=== PATIENT | male | born 1965 | race Caucasian/White ===

== ENCOUNTER 2017-01-30 10:10 | Emergency (ER) | payer BC ==
[~2017-01-30] VITALS: Ht 180.3 cm; Wt 88.5 kg
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
[2017-01-30] MEDS ORDERED: BACI/NEOM/POLY B OINT PKT 1 UDPKT PACKET TP ONE (10:30)
[2017-01-30] MEDS ORDERED: TDAP [DIPH/PERTUSSIS/TET] 0.5 ML VIAL IM ONE ×2 (10:30→10:34)
[2017-01-30] MEDS ORDERED: LIDOCAINE HCL/PF 1% 30 ML VIAL TP ONE (10:30)
[2017-01-30] MEDS ORDERED: LIDOCAINE /MPF 1% VIAL 5 ML VIAL ONE (10:33)
--- NOTE | 2017-01-30 11:09 | NUR ---
AT BEDSIDE FOR SUTURES.
[2017-01-30 11:29] VITALS: BP 138/88
--- NOTE | 2017-01-30 11:30 | NUR ---
Patient discharged to home in stable condition. Written and verbal after care instructions given. Patient verbalizes understanding of instruction.
== END 2017-01-30 11:29 | disposition home or self-care (01) ==
LOC: ER 10:11
DX: S01.511A Laceration without foreign body of lip, initial encounter (principal); W22.8XXA Striking against or struck by other objects, initial encounter; Y93.89 Activity, other specified; Y92.89 Other specified places as the place of occurrence of the external cause; Y99.8 Other external cause status
CPT/HCPCS: 12011; 90471; 90715; 99283; A4606; A6402; J3490 ×2; Z7610